=== PATIENT | female | born 1995 | race Hispanic/Latino ===

== ENCOUNTER 2019-03-20 20:39 | Outpatient (CLI) | payer OTHER ==
[~2019-03-20] VITALS: Ht 152.4 cm; Wt 64.0 kg
[2019-03-20 20:57] VITALS: BP 121/75
[2019-03-20 21:39] LABS: HEMATOCRIT 31.2 % (36.0-47.0); HEMOGLOBIN 10.2 g/dl (12.0-15.5); MEAN CORPUSCULAR HEMOGLOBIN 27.1 pg (27.0-33.0); MEAN CORPUSCULAR HGB CONC 32.7 g/dl (32.0-36.5); MEAN CORPUSCULAR VOLUME 82.8 fl (80.0-96.0); PLATELET COUNT, AUTOMATED 305 10^3/uL (150-450); RED BLOOD COUNT 3.77 10^6/uL (4.00-5.40); WHITE BLOOD COUNT 7.2 10^3/uL (4.0-10.0)
[2019-03-20 22:07] LABS: ALBUMIN 2.5 GM/DL (3.2-5.2); ALT/SGPT 17 U/L (12-78); BILIRUBIN,TOTAL 0.2 MG/DL (0.2-1.0); BLOOD UREA NITROGEN 4 MG/DL (7-18); CALCIUM LEVEL 8.3 MG/DL (8.5-10.1); CARBON DIOXIDE LEVEL 23 MEQ/L (21-32); CHLORIDE LEVEL 107 MEQ/L (98-107); GLOMERULAR FILTRATION RATE > 60.0 (>60); GLUCOSE, FASTING 87 MG/DL (70-100); SODIUM LEVEL 139 MEQ/L (136-145); TOTAL PROTEIN 6.3 GM/DL (6.4-8.2)
[2019-03-20] MEDS ORDERED: MULTIVITAMIN -ADULT INJECTION 10 ML, THIAMINE INJection 100 MG, FOLIC ACID 1 MG in NS 1... IV ONE (22:45)
[2019-03-20] MEDS ORDERED: LOMOTIL 2.5MG/0.025MG TABLET PO ONE (23:15)
--- NOTE | 2019-03-21 06:53 | HPE ---
DATE OF ADMISSION: 03/20/2019 23-year-old 1, para 0, last menstrual period (LMP) 07/13/2018, estimated date of confinement (EDC) by early ultrasound at 9 weeks is 05/17/2019, history of cramps and diarrhea for 5 days now. She is at 31 and 5 weeks of gestation. Risk factors she has anemia, dehydration, diarrhea times 1 week. Labs show A positive. Rubella immune. Varicella immune. RPR negative. Urine negative. Hepatitis negative. HIV negative. TSH was normal. Quad screen was negative. 1-hour glucose at 28 weeks was 124. Pap was normal. Gonorrhea and chlamydia are negative. On examination today she is in no acute distress. She is having some gas pains and she had one episode of diarrhea prior to coming to triage. She has been given Lomotil by her family physician, although she stopped it after she did not have diarrhea for less than 24 hours. She now has episodic diarrhea with moderate amount of cramps which is translating to increasing uterine activity. Her lab values show that her calcium was low at 8.3. Her total protein was low at 6.3. Albumin/globulin ratio was low at 0.66. The urine has 2+ ketones. Pulse 81, respirations 18, blood pressure 121/75. Hemoglobin 10.2, hematocrit 31.2 and platelets are 305. She does have a family history of diabetes in her mother who was a gestational diabetic, went on to become diabetic. She does not know if she is on insulin or oral glycemics. Father has hypertension. She has recently moved here from elsewhere, but has not seen [place] people. She was spent [address] [facility] because of dehydration. Presently, she has a category 1 strip. She has occasional tightenings but mostly bowel irritability. Our plan of management is to IV hydrate her with 1 unit of MVI, hydrate her until she is ketone negative. Stool culture for C. Difficile. Kaopectate and Lomotil as needed. Once she is settled we will discharge. She has a followup appointment on Monday for intake evaluation by physician.
[2019-03-21] MEDS ORDERED: PINK BISMUTH SUSP 524MG/30ML ORAL SYRINGE PO SCH (08:00)
== END 2019-03-21 00:50 | disposition home or self-care (01) ==
LOC: M LDO 20:39
PROVIDERS: ATTEND Obstetrics & Gynecology
DX: O99.89 Other specified diseases and conditions complicating pregnancy, childbirth and the puerperium (principal); Z3A.31 31 weeks gestation of pregnancy; R11.2 Nausea with vomiting, unspecified; R19.7 Diarrhea, unspecified
CPT/HCPCS: 36415; 59025; 80053; 85027; G0378; G0463; J3411